=== PATIENT | female | born 1980 | race Caucasian/White ===

== ENCOUNTER → 2017-03-29 | Outpatient (CLI) | payer OTHER ==
[~2017-03-29] MED LIST: PRENTAB26 PO
== END | disposition home or self-care (01) ==
LOC: C.PAPS 15:46
PROVIDERS: ATTEND Obstetrics & Gynecology
DX: Z01.419 Encounter for gynecological examination (general) (routine) without abnormal findings (principal)

== ENCOUNTER → 2017-03-29 | Outpatient (CLI) | payer OTHER ==
[2017-04-03 00:04] LABS: CHLAMYDIA TRACH RNA*** NOT DETECTED (NOT DETECTED); GC (NEIS GONORRHOEAE)RNA** NOT DETECTED (NOT DETECTED)
== END | disposition home or self-care (01) ==
LOC: C.LABSPEC 14:40
PROVIDERS: ATTEND Obstetrics & Gynecology
DX: Z20.2 Contact with and (suspected) exposure to infections with a predominantly sexual mode of transmission (principal)

== ENCOUNTER → 2017-05-14 | Outpatient (CLI) | payer OTHER ==
[~2017-05-14] MED LIST changes: +BCPILLS PO; +LORA-741 PO
== END | disposition home or self-care (01) ==
LOC: C.LAB 11:30
PROVIDERS: ATTEND Obstetrics & Gynecology
DX: O03.9 Complete or unspecified spontaneous abortion without complication (principal)

== ENCOUNTER → 2017-05-27 | Outpatient (CLI) | payer OTHER ==
[~2017-05-27] MED LIST changes: -PRENTAB26 PO
== END | disposition home or self-care (01) ==
LOC: C.LAB 14:51
PROVIDERS: ATTEND Obstetrics & Gynecology
DX: O03.9 Complete or unspecified spontaneous abortion without complication (principal)

== ENCOUNTER → 2017-05-30 | Day surgery (SDC) | payer OTHER ==
[2017-05-17 15:23] VITALS: Ht 165.1 cm; Wt 56.8 kg
[~2017-05-30] VITALS: Ht 165.1 cm; Wt 56.8 kg
== END | disposition home or self-care (01) ==
LOC: EDSTATUS 13:00 → C.PAT 15:48
PROVIDERS: ATTEND Obstetrics & Gynecology
DX: Z53.09 Procedure and treatment not carried out because of other contraindication (principal)

== ENCOUNTER → 2017-06-05 | Day surgery (SDC) | payer OTHER ==
[~2017-06-05] VITALS: Ht 165.1 cm; Wt 56.8 kg
[2017-06-05 11:40] VITALS: BP 103/69; PULSE 77; TEMP 36.9; O2SAT 98; Ht 165.1 cm; Wt 56.8 kg
== END | disposition home or self-care (01) ==
LOC: C.MTU 11:23
PROVIDERS: ATTEND Obstetrics & Gynecology
DX: O20.0 Threatened abortion (principal); O36.0990 Maternal care for other rhesus isoimmunization, unspecified trimester, not applicable or unspecified; Z3A.00 Weeks of gestation of pregnancy not specified

== ENCOUNTER 2017-06-14 10:21 | Day surgery (SDC) | payer SELFPAY ==
--- NOTE | 2017-06-11 18:26 | HISTORY & PHYSICAL EXAMINATION ---
DATE OF ADMISSION: 06/14/2017 CHIEF COMPLAINT: Missed . Desire for permanent sterilization. HISTORY OF PRESENT ILLNESS: The patient is a 36-year-old 5, para 4, general health is good. She is on no chronic pills or medications. She was and did not have any menstrual cycle. She had an episode of bleeding on 05/13/2017 and was found to have a positive test. The baby uterines were repeated a week later and they wendie. She eventually was evaluated with several transvaginal ultrasounds. A transvaginal ultrasound on 06/04/2017 which showed a gestational sac and a yolk sac with no fetus. The test was then repeated a week later and basically showed no growth, no pole. She was diagnosed at this point as having a missed . She also requests permanent sterilization and has been made aware of the fact that the procedure is intended to result in permanent and irreversible sterility. There are occasional failures where the procedure will fail and the patient will get despite having had her tubes tied. She is also aware of alternative temporary forms of control, presently being scheduled for an outpatient D&E laparoscopic tubal ligation. PAST MEDICAL HISTORY: Four children in good health. ALLERGIES: ALLERGIC TO PENICILLIN WHICH GIVES HER HIVES. PAST SURGICAL HISTORY: She has wisdom teeth removed under general anesthesia in the past, no symptoms of rheumatic fever, heart disease, high blood pressure, diabetes or hypothyroidism. SOCIAL HISTORY: No smoking, no excessive alcohol intake. Afad-vs-rvay mom. FAMILY HISTORY: Mom is 68, high blood pressure. Father, 70 with high blood pressure. One brother in good health. REVIEW OF SYSTEMS: HEAD: No symptoms of frequent or severe headaches. EYES: No symptoms of blurred vision or double vision. EARS: No symptoms of frequent ear infections, difficulty hearing. PHYSICAL EXAMINATION: GENERAL: Well developed, well-nourished 36-year-old white female, alert, oriented x3 and cooperative, in no acute distress, appears stated age. EYES: Conjunctivae are pink. Sclerae white, no evidence of jaundice. EARS: Had normal light reflex bilaterally. NOSE: Had normal mucosa. Septum is midline. There were no polyps. THROAT: No erythema or evidence of infection. Teeth are in good state of repair. HEAD: Normocephalic, normal distribution of hair. NECK: Supple. Trachea midline. Thyroid is not enlarged. There is no adenopathy appreciated. Both carotids are of good intensity. CHEST: Clear to auscultation and percussion wheezes, rales or rhonchi appreciated. HEART: Had regular rhythm. S1 and S2 were normal. ABDOMEN: Soft and nontender. PELVIC: Revealed small amount of bleeding from cervical os. Uterus was 7-8 weeks' gestational size, anteverted. There were no adnexal masses appreciated. MUSCULOSKELETAL: Revealed no calf tenderness. IMPRESSIONS OF THIS CASE: Status post removal of wisdom teeth, desire for permanent sterilization and missed . MTDD
[~2017-06-14] VITALS: Ht 167.6 cm; Wt 56.4 kg
[~2017-06-14 10:21] MED LIST changes: -BCPILLS PO; +DEXAMETHASONE SOD INJ 4 MG/ML VIAL ONE; +FENTANYL CITRATE INJ 50 MCG/1 ML 2 ML VIAL ONE; +LACTATED RINGER'S 1000ML 1,000 ML IV SCH; +LIDOCAINE HCL 2% 2 ML VIAL (20MG/ML) ONE; +MIDAZOLAM HCL 1 MG/ML 2ML VIAL ONE; +ONDANSETRON INJ 2 MG/ML 2 ML VIAL ONE; +PROPOFOL IV EMULSION 10 MG/ML 20 ML VIAL IV ONE
[2017-06-14 10:33] VITALS: BP 103/73; PULSE 76; TEMP 36.4; O2SAT 100; Ht 167.6 cm; Wt 56.4 kg
[2017-06-14] MEDS ORDERED: LABETALOL HCL IV 5 MG/ML 20ML IV PRN (12:00)
[2017-06-14] MEDS ORDERED: MEPERIDINE HCL 25 MG/ML CARP IV PRN (12:00)
[2017-06-14] MEDS ORDERED: ATROPINE SULFATE 0.1 MG/ML 5ML SYR IV PRN (12:00)
[2017-06-14] MEDS ORDERED: FENTANYL CITRATE INJ 50 MCG/1 ML 2 ML VIAL IV PRN (12:00)
[2017-06-14] MEDS ORDERED: HYDROmorphone INJ 1 MG/ML SYR IV PRN (12:00)
[2017-06-14] MEDS ORDERED: EpHEDrine SULFATE INJ 50 MG/ML AMP IV PRN (12:00)
[2017-06-14] MEDS ORDERED: ONDANSETRON INJ 2 MG/ML 2 ML VIAL IV PRN ×2 (12:00→14:00)
--- NOTE | 2017-06-14 12:02 | History & Physical Bridge Note ---
H&P Re-Evaluation Bridge Note: I have examined the patient, reviewed the History & Physical and in the interval since the performance of the History & Physical I have noted the following changes of clinical significance: No changes noted
[2017-06-14] MEDS ORDERED: BUPIVACAINE/EPINEPHRINE 0.5% MPF 1:200,000 30 ML VIAL ONE (12:38)
[2017-06-14] MEDS ORDERED: FENTANYL CITRATE INJ 50 MCG/1 ML 2 ML VIAL ONE ×4 (12:43→13:56)
[2017-06-14] MEDS ORDERED: MIDAZOLAM HCL 1 MG/ML 2ML VIAL ONE (13:11)
[2017-06-14] MEDS ORDERED: BUPIVACAINE/EPINEPHRINE 0.5% MPF 1:200,000 30 ML VIAL INJ ONE (13:15)
[2017-06-14] MEDS ORDERED: ROCURONIUM BROMIDE 10 MG/ML 5 ML VIAL IV ONE (13:19)
[2017-06-14] MEDS ORDERED: GLYCOPYRROLATE INJ 0.2 MG/ML VIAL ONE (13:19)
[2017-06-14] MEDS ORDERED: NEOSTIGMINE METHYLSULFATE 5 MG/5 ML SYR ONE (13:19)
[2017-06-14] MEDS ORDERED: ONDANSETRON INJ 2 MG/ML 2 ML VIAL ONE ×2 (13:19)
[2017-06-14] MEDS ORDERED: PROPOFOL IV EMULSION 10 MG/ML 20 ML VIAL IV ONE (13:19)
[2017-06-14] MEDS ORDERED: LIDOCAINE HCL 2% 2 ML VIAL (20MG/ML) ONE (13:19)
[2017-06-14] MEDS ORDERED: DEXAMETHASONE SOD INJ 4 MG/ML VIAL ONE (13:19)
--- NOTE | 2017-06-14 13:46 | [facility] Post Operative Brief Note ---
Immediate Operative Summary Operative Date Jun 14, 2017. Pre-Operative Diagnosis Missed , desire for permanent sterilization Post-Operative Diagnosis normal tubes and ovaries Procedure(s) Performed Dilation and Evacuation; Laparoscopic Tubal Cauterization Surgeon Dr. Robinson Alvarado Senior Web Architect Surgeon(s) none Estimated Blood Loss 50mL Findings Consistent with Post-Op Diagnosis Specimens A. Products of Conception Drains None Anesthesia Type General Complication(s) none Disposition Disposition: Recovery Room / PACU
[2017-06-14] MEDS ORDERED: SODIUM CHLORIDE 0.9% 1000ML 1,000 ML IV SCH (13:57)
[2017-06-14] MEDS ORDERED: OXYCODONE/ACETAMINOPHEN 5-325 TAB PO PRN ×2 (14:00)
[2017-06-14] MEDS ORDERED: KETOROLAC TROMETHAMINE 30 MG/ML VIAL IV. PRN (14:00)
[2017-06-14] MEDS ORDERED: IBUPROFEN 600 MG TAB PO PRN (14:00)
[2017-06-14] MEDS ORDERED: HYDROCODONE/ACETAMIN 5/325MG TAB PO PRN ×4 (14:00)
--- NOTE | 2017-06-14 14:01 | Discharge Instructions ---
Discharge Instructions Date of Service Jun 14, 2017. Visit Reason for Visit: Missed Discharge Discharge Diagnosis / Problem: DESIRE FOR PERMANENT STERILIZATION MISSED Discharge Goals Goal(s): Improve function, Learn about illness, Therapeutic intervention Activity Recommendations Activity Limitations: as noted below SPECIAL CARE INSTRUCTIONS: * Check temperature twice daily for one week. Report any elevation over 100.4 degrees Fahrenheit (38.0 degrees Celsius). * Call office in the next few days for return appointment. * You may experience some vaginal spotting and/or bleeding, this is normal for one or two weeks and should not alarm you. * Post-operative discomfort may consist of a sore throat, a "bloated" feeling and pain in the shoulders. These are normal symptoms which usually only last for two or three days. FOLLOW UP VISIT: Keep any scheduled doctor appointments. ACTIVITY RECOMMENDATIONS: * Avoid tampons, douching, hot tubs, pools, and intercourse until bleeding has stopped. * May shower as usual. * No strenuous activity for 24-48 hours. After 24-48 hours, you may do anything you feel like doing (driving and sports are okay). SPECIAL CARE INSTRUCTIONS: Special Diet: * Mild nausea may occur in the immediate post-operative period. * Take clear liquids such as tea, cola or bouillon until all nausea has subsided; you may then resume your normal diet. Special Care: * Light bleeding and vaginal spotting can last from a few days to 3-4 weeks. Call your doctor if bleeding becomes heavier than the heaviest part of your period. * Check your temperature twice a day for one week. If it goes above 100.4 degrees Fahrenheit (38.0 Celsius), notify your doctor. * Call your doctor's office for an appointment for 6 weeks after your surgery. FOLLOW-UP VISIT: Call your doctor's office for an appointment for 6 weeks after your surgery. Anesthesia . Post Anesthesia Instructions: If you have had General Anesthesia or IV Sedation: * Do not drive today. * Resume driving when surgeon permits. * Do not make important decisions or sign legal documents today. * Call surgeon for: 1. Temperature elevations greater than 101 degrees F. 2. Uncontrollable pain. 3. Excessive bleeding. 4. Persistent nausea and vomiting. 5. Medication intolerance (nausea, vomiting or rash). * For nausea and vomiting use only clear liquids such as: tea, soda, bouillon until nausea subsides, then gradually increase diet as tolerated. * If you have any concerns or questions, call your surgeon's office. If physician is unavailable and it is an emergency, call 911 or go to the nearest emergency room. . Diet Recommendations Recommended Home Diet: resume previous diet Procedures Procedures Performed: Dilation and Evacuation; Laparoscopic Tubal Cauterization Pending Studies Studies pending at discharge: no Medical Emergencies . Who to Call and When: Medical Emergencies: If at any time you feel your situation is an emergency, please call 911 immediately. . Non-Emergent Contact Non-Emergency issues call your: Electronic Commerce Specialist Call Non-Emergent contact if: temperature is above 100.5 . . "Provider Documentation" section prepared by Robinson Alvarado. .
[2017-06-14] MEDS ORDERED: KETOROLAC TROMETHAMINE 30 MG/ML VIAL ONE (14:17)
[2017-06-14 14:40] VITALS: BP 99/56; PULSE 67; TEMP 36.5; O2SAT 95
[2017-06-14 15:20] VITALS: BP 97/57; PULSE 69; TEMP 36.7; O2SAT 95
--- NOTE | 2017-06-14 15:37 | OPERATIVE REPORT ---
DATE OF OPERATION: 06/14/2017 PROCEDURES: Suction, sharp evacuation of uterine contents, and bilateral tubal cauterization. INDICATIONS FOR SURGERY: Missed . Desire for permanent sterilization. PREOPERATIVE DIAGNOSES: Missed . Desire for permanent sterilization. POSTOPERATIVE DIAGNOSES: Missed . Desire for permanent sterilization. Normal pelvis. SURGEON: Jimbo Alvarado MD ESTIMATED BLOOD LOSS: 50 mL. ANESTHESIA: General. OPERATIVE FINDINGS AND PROCEDURE: The patient was brought to the OR table, correctly identified by armband and conversation. General anesthesia was administered. Lower abdomen, vagina and perineum were prepped with sterilizing solution and alcohol based sterilizing solution were used to prep the abdomen and Betadine was used to prep the vagina and perineum. Following this, the patient was draped in usual sterile fashion. A catheter was used to empty the bladder. A weighted speculum was placed in posterior vagina. The anterior lip of the cervix was grasped with an Allis. The cervix was brought out into view and dilated with graduated dilators. A #8 suction curette was placed in the uterine cavity. Suction was applied. Amniotic fluid and placental tissue could be seen coming through the curette. Following this, a sharp curette was placed in uterine cavity. All 4 quadrants of the uterus were thoroughly, but gently curetted. Suction was reapplied to remove all remaining fragments and debris. Next, an acorn cannula was inserted to cervical canal and connected to the Allis, which was attached to the cervix. Attention was now turned to the abdomen. Subumbilical area was infiltrated with local with epinephrine. Stab wound was placed and a Veress needle was inserted into the abdominal cavity. Position was checked with normal saline. Incision was then widened laterally and a 10 mm trocar and sleeve was inserted. Trocar was removed and then a laparoscope was inserted. Good visualization of pelvic structures and abdominal structures was obtained at this time. A second puncture site was made 2-3 fingerbreadths above the pubic symphysis in the midline. This area was also infiltrated with local with epinephrine. Stab wound was placed and a 5 mm trocar and sleeve was inserted under direct visualization. Trocar was removed and then a blunt probe was used to manipulate the bowels out of the pelvic cavity along with the head down position. There was some clotted blood in the cul-de-sac. Both tubes and ovaries were visualized. Each tube was followed out to the fimbriated end to ensure identification. The mid portion of each tube was grasped with a bipolar cauterization forceps and burned in 2 consecutive and adjacent areas, this on both the right and left side. Then laparoscopic scissors was used to cut the cauterized area and divide and separate the tubes. Pictures were taken of the cauterized and divided tubes. Then I used a suction retail assistant store manager to clean out the cul-de-sac and suction out a clot. Following this, there was essentially no bleeding. Hemostasis was excellent. Photographs were taken after the procedure had been performed. Gas was expressed manually. Instruments were removed. Ports were cleansed with Betadine and then sutured. The subumbilical site was approximated with interrupted heavy Vicryl and then the suprapubic site was approximated with a deep heavy Vicryl and then a superficial monochrome. Following this, hemostasis was good. The instruments were removed from the bottom, consisting of the Allis and acorn cannula. The patient tolerated the procedure well and left the OR in good condition. I attest to the content of the Intraoperative Record and any orders documented therein. Any exception s are noted below.
--- NOTE | 2017-06-14 17:38 | Anesthesiology Progress Note ---
Anesthesia Post Op Note Date & Time Jun 14, 2017 at 17:38 Vital Signs Pain Intensity: 1 Vital Signs Past 12 Hours Date Time Temp Pulse Resp B/P (MAP) Pulse Ox O2 Delivery O2 Flow Rate FiO2 06/14/17 15:20 36.7 69 18 97/57 95 Room Air 06/14/17 14:40 36.5 67 18 99/56 95 Room Air 06/14/17 14:37 36.4 06/14/17 14:31 36.4 94/60 06/14/17 14:27 59 13 06/14/17 14:27 58 13 95 06/14/17 14:26 98/56 06/14/17 14:22 56 12 06/14/17 14:22 54 12 100 06/14/17 14:21 101/59 06/14/17 14:17 54 14 97 06/14/17 14:17 54 14 06/14/17 14:16 99/57 06/14/17 14:12 59 21 06/14/17 14:12 60 21 99 06/14/17 14:11 91/53 06/14/17 14:07 54 12 99 06/14/17 14:07 53 12 06/14/17 14:06 99/58 06/14/17 14:02 54 14 99 06/14/17 14:02 53 14 06/14/17 14:01 92/53 06/14/17 13:59 98/57 06/14/17 13:57 36.4 56 14 98/57 100 Oxymask 7 06/14/17 10:33 36.4 76 18 103/73 (83) 100 Room Air Notes Mental Status: alert / awake / arousable, participated in evaluation Pt Amnestic to Procedure: Yes Nausea / Vomiting: adequately controlled Pain: adequately controlled Airway Patency, RR, SpO2: stable & adequate BP & HR: stable & adequate Hydration State: stable & adequate Anesthetic Complications: no major complications apparent
== END 2017-06-14 15:40 | disposition home or self-care (01) ==
LOC: C.ACU 10:21
PROVIDERS: ATTEND Obstetrics & Gynecology
DX: O02.1 Missed abortion (principal); Z30.2 Encounter for sterilization; Z88.0 Allergy status to penicillin